=== PATIENT | female | born 1970 | race Caucasian/White ===

== ENCOUNTER → 2017-04-22 | Outpatient (CLI) | payer OTHER | LOC: FIMAGING 15:22 | PROVIDERS: ATTEND Obstetrics & Gynecology | DX: Z12.31 Encounter for screening mammogram for malignant neoplasm of breast (principal) ==

== ENCOUNTER → 2017-04-25 | Outpatient (CLI) | payer OTHER | LOC: FIMAGING 12:18 | PROVIDERS: ATTEND Family Medicine | DX: R92.8 Other abnormal and inconclusive findings on diagnostic imaging of breast (principal) ==